=== PATIENT | female | born 1970 | race Caucasian/White ===

== ENCOUNTER 2018-09-04 22:17 | Emergency (ER) | payer OTHER ==
[2018-09-04] MEDS ORDERED: PROPARACAINE 0.5% OPHTH DROPS 15 ML BTL RIGHT EYE STA (22:54)
[2018-09-05] MEDS ORDERED: IBUPROFEN 600 MG STARTER PACK 4 TAB BTL PO STA (00:05)
[2018-09-05] MEDS ORDERED: TOBRAMYCIN 0.3% OPHTH OINT 3.5 GM TUBE RIGHT EYE STA (00:05)
--- NOTE | 2018-09-05 00:08 | ED ---
ENT HPI - General Chief complaint: ENT Stated complaint: Rt eye lac Time Seen by Provider: 09/04/18 22:47 Source: patient Mode of arrival: ambulatory Limitations: no limitations - History of Present Illness Initial comments: 47-year-old female patient presents to the emergency department today for evaluation of right eye pain and eyelid swelling. Patient states that symptoms have been present for the last 2 days. States she is having purulent drainage from the eye. Patient states that she does have light sensitivity and is unable to open the eye without significant discomfort. States when the eye is open she does have blurred vision. She denies any fevers or chills with this. Denies any headache. Patient also has a chronic wound over the right eye states his been present for the last year. Denies any current purulent drainage from the area. Patient denies any recent rash, shortness breath, chest pain, abdominal pain, nausea, vomiting, diarrhea, constipation, back pain, numbness, tingling, dizziness, weakness, hematuria, dysuria, urinary urgency, urinary frequency, or any other complaints. - Related Data Home Medications Medication Instructions Recorded Confirmed Ibuprofen [Motrin] 600 mg PO Q6H PRN 09/04/18 09/04/18 Previous Rx's Medication Instructions Recorded Ibuprofen [Motrin] 600 mg PO Q8HR PRN #30 tab 09/05/18 Allergies Allergy/AdvReac Type Severity Reaction Status Date / Time No Known Allergies Allergy Verified 09/04/18 22:37 Review of Systems ROS Statement: Those systems with pertinent positive or pertinent negative responses have been documented in the HPI. ROS Other: All systems not noted in ROS Statement are negative. Past Medical History Past Medical History: No Reported History History of Any Multi-Drug Resistant Organisms: None Reported Past Surgical History: No Surgical Hx Reported Past Psychological History: No Psychological Hx Reported Smoking Status: Never smoker Past Alcohol Use History: None Reported Past Drug Use History: None Reported General Exam Limitations: no limitations General appearance: alert, in no apparent distress, other (This is a well-developed, well-nourished adult female patient in no acute distress. Vital signs upon presentation are temperature 97.6F, pulse 88, respirations 16, blood pressure 153/90, pulse ox 98% on room air.) Eye exam: Present: PERRL, EOMI, other (Patient has right upper lid edema, erythema. There is conjunctival injection and evidence of purulent drainage from the right eye. I did perform fluorescein stain with Wood's lamp examination which does reveal a large corneal abrasion centrally located. Patient has no evidence of hyphema or globe rupture. There is a wound noted to the right superior orbital region there is no evidence of drainage or surrounding erythema.). Absent: normal appearance, scleral icterus, conjunctival injection, nystagmus, periorbital swelling ENT exam: Present: normal exam, normal oropharynx, mucous membranes moist Respiratory exam: Present: normal lung sounds bilaterally. Absent: respiratory distress, wheezes, rales, rhonchi, stridor Cardiovascular Exam: Present: regular rate, normal rhythm, normal heart sounds. Absent: systolic murmur, diastolic murmur, rubs, gallop, clicks GI/Abdominal exam: Present: soft, normal bowel sounds. Absent: distended, tenderness, guarding, rebound, rigid Neurological exam: Present: alert, oriented X3, CN II-XII intact Psychiatric exam: Present: normal affect, normal mood Skin exam: Present: warm, dry, intact, normal color. Absent: rash Course Vital Signs 09/04/18 09/05/18 22:18 00:21 Temperature 97.6 F 98 F Pulse Rate 88 77 Respiratory 16 18 Rate Blood Pressure 153/90 149/79 O2 Sat by Pulse 98 97 Oximetry Medical Decision Making - Medical Decision Making 47 year-old female patient presents to the emergency department today for evaluation of right eye pain and drainage. Physical examination did reveal upper lid edema and erythema. There was purulent drainage coming from the eye. There was evidence of conjunctival injection. I did perform fluorescein stain with Wood's lamp examination which did reveal a large corneal abrasion centrally located. Patient will be treated with tobramycin ophthalmic ointment. She is instructed to apply warm compresses and to take ibuprofen as needed for pain control. She also has a chronic wound noted to the right superior orbital region that does not appear to be inflamed or infected at this time. She will be referred to ophthalmology if her symptoms aren't improved over the next 1-2 days. She is also instructed to follow-up with dermatology for further evaluation of this chronic wound that she has not had evaluated in the past. Return parameters were discussed in detail. She verbalizes understanding and agrees with this plan. Disposition Clinical Impression: Right corneal abrasion Disposition: HOME SELF-CARE Condition: Good Instructions (If sedation given, give patient instructions): Tobramycin (Into the eye), Corneal Abrasion (ED) Additional Instructions: Do warm compresses to the right eye. Use tobramycin ointment 4 times daily while awake. Follow-up with forming machine tender if her symptoms aren't improved over the next 1-2 days. Follow-up with dermatology for further evaluation of the right eye wound. Return to the emergency department immediately for any new, worsening, or concerning symptoms. Prescriptions: Ibuprofen [Motrin] 600 mg PO Q8HR PRN #30 tab PRN Reason: Pain Is patient prescribed a controlled substance at d/c from ED?: No Referrals: José Gonzáles MD [Primary Care Provider] - 1-2 days Morris Ruiz MD [STAFF PHYSICIAN] - 1-2 days Ivan Fenton MD [STAFF PHYSICIAN] - 1-2 days Time of Disposition: 00:08
[2018-09-05 00:22] VITALS: BP 149/79; PULSE 77; RESP 18; TEMP 98
== END 2018-09-05 00:22 | disposition home or self-care (01) ==
LOC: EC 22:17
DX: S05.01XA Injury of conjunctiva and corneal abrasion without foreign body, right eye, initial encounter (principal); H02.841 Edema of right upper eyelid; X58.XXXA Exposure to other specified factors, initial encounter
CPT/HCPCS: 99283

== ENCOUNTER → 2019-04-18 | Outpatient (CLI) | payer OTHER ==
[2019-04-18 17:22] LABS: African American GFR (CKD) >90 (>60 ml/min/1.73 sqM); Blood Urea Nitrogen 20 mg/dL (7-17)
--- NOTE | 2019-04-19 17:52 | CT ---
EXAMINATION TYPE: CT orbits w con DATE OF EXAM: 04/18/2019 COMPARISON: None INDICATION: Basal cell carcinoma of right eye. DLP: 312.3 mGycm, Automated exposure control for dose reduction was used. CONTRAST: 100 mL Isovue-300 CT of the chest is performed at 2 mm thick sections. Reconstructed images in the coronal plane are re viewed. Study is performed with intravenous contrast. FINDINGS: Mild mucosal thickening is within the left inferior maxillary sinus. Remaining paranasal si nuses are clear. Mastoid air cells are clear. Nasal bones are intact. Orbital floors are normal. No suspicious intraconal and extraconal abnormalit y is evident. Right eye appears symmetrical to contralateral left side. No abnormal enhancement is ev ident. IMPRESSIONS: 1. Normal CT orbits
== END | disposition home or self-care (01) ==
LOC: RADCTMAIN 16:41
PROVIDERS: ATTEND Ophthalmology
DX: C44.111 Basal cell carcinoma of skin of unspecified eyelid, including canthus (principal)
CPT/HCPCS: 82565; 84520; 70481; 36415; Q9967

== ENCOUNTER → 2020-02-18 | Outpatient (CLI) | payer OTHER ==
--- NOTE | 2020-02-18 16:22 | CT ---
EXAMINATION TYPE: CT orbits w con DATE OF EXAM: 02/18/2020 COMPARISON: 04/18/2019 HISTORY: ca dx to right orbit CT DLP: 358.7 mGycm Automated exposure control for dose reduction was used. CONTRAST: Performed with IV Contrast, patient injected with 100 mL of Isovue 300. Contrast-enhanced CT of the o rbits was performed in the axial and coronal planes. FINDINGS: There is thickening involving the anterior right globe which may reflect the site of known malignancy . Overall the appearance is unchanged relative to the prior study. Correlate clinically. The globes a re otherwise symmetric.The intra and extraconal soft tissues are within normal limits without evidenc e for mass. Optic nerves and extraocular musculature within normal limits. There is no evidence for p roptosis. Mild chronic sinusitis. IMPRESSION: There is thickening involving the anterior right globe which may reflect the site of known malignancy . Overall the appearance is unchanged relative to the prior study. Correlate clinically.
== END | disposition home or self-care (01) ==
LOC: RADCTMAIN 15:30
PROVIDERS: ATTEND Ophthalmology
DX: H05.89 Other disorders of orbit (principal)
CPT/HCPCS: 70481; Q9967

== ENCOUNTER 2021-12-17 14:01 | Emergency (ER) | payer OTHER ==
--- NOTE | 2021-12-17 15:27 | XR ---
EXAMINATION TYPE: XR chest 2V DATE OF EXAM: 12/17/2021 COMPARISON: NONE HISTORY: Pain and swelling TECHNIQUE: 2 views FINDINGS: Heart and mediastinum are normal. Lungs are clear. Diaphragm is normal. Bony thorax is inta ct. IMPRESSION: Normal chest.
[2021-12-17 15:28] LABS: Basophils # (A) 0.1 k/uL (0-0.2); Basophils % (A) 1 %; Eosinophils # (A) 0.2 k/uL (0-0.7); Eosinophils % (A) 3 %; HCT 39.8 % (34.0-46.0); HGB 13.4 gm/dL (11.4-16.0); Lymphocytes # (A) 1.3 k/uL (1.0-4.8); Lymphocytes % (A) 22 %; MCH 30.7 pg (25.0-35.0); MCHC 33.6 g/dL (31.0-37.0); MCV 91.5 fL (80.0-100.0); Mean Platelet Volume 7.5; Monocytes # (A) 0.3 k/uL (0-1.0); Monocytes % (A) 5 %; Neutrophils # (A) 4.1 k/uL (1.3-7.7); Neutrophils % (A) 68 %; Platelet Count 298 k/uL (150-450); RBC 4.35 m/uL (3.80-5.40); RDW 12.1 % (11.5-15.5)
[2021-12-17 15:38] LABS: ALT 12 U/L (4-34); AST 20 U/L (14-36); African American GFR (CKD) >90 (>60 ml/min/1.73 sqM); Albumin 4.4 g/dL (3.5-5.0); Alkaline Phosphatase 60 U/L (38-126); Anion Gap 8 mmol/L; Blood Urea Nitrogen 13 mg/dL (7-17); Calcium 9.1 mg/dL (8.4-10.2); Carbon Dioxide 24 mmol/L (22-30); Chloride 106 mmol/L (98-107); Glucose 94 mg/dL (74-99); Non-African American GFR(CKD) >90 (>60 ml/min/1.73 sqM); Potassium 4.1 mmol/L (3.5-5.1); Sodium 138 mmol/L (137-145); Total Bilirubin 0.5 mg/dL (0.2-1.3); Total Protein 7.7 g/dL (6.3-8.2)
--- NOTE | 2021-12-17 15:39 | ED ---
General Adult HPI - General Chief complaint: Extremity Problem,Nontraumatic Stated complaint: Pain in feet/Edema Time Seen by Provider: 12/17/21 14:33 Source: patient, RN notes reviewed Mode of arrival: ambulatory Limitations: no limitations - History of Present Illness Initial comments: 51-year-old female presents to the emergency room for a chief complaint of swelling in feet. Patient states she has had bilateral foot swelling for a year now. States she tried compression socks that she got on [employer] which haven't helped. States sometimes they hurt. Today it is hurting which brought her in. Patient denies any chest pain or shortness of breath.Patient has no other complaints at this time including shortness of breath, chest pain, abdominal pain, nausea or vomiting, headache, or visual changes. - Related Data Home Medications Medication Instructions Recorded Confirmed Ibuprofen [Motrin] 600 mg PO Q6H PRN 09/04/18 09/04/18 Previous Rx's Medication Instructions Recorded Ibuprofen [Motrin] 600 mg PO Q8HR PRN #30 tab 09/05/18 Allergies Allergy/AdvReac Type Severity Reaction Status Date / Time No Known Allergies Allergy Verified 12/17/21 14:11 Review of Systems ROS Statement: Those systems with pertinent positive or pertinent negative responses have been documented in the HPI. ROS Other: All systems not noted in ROS Statement are negative. Past Medical History Past Medical History: No Reported History History of Any Multi-Drug Resistant Organisms: None Reported Past Surgical History: No Surgical Hx Reported Additional Past Surgical History / Comment(s): eye surgery Past Psychological History: No Psychological Hx Reported Smoking Status: Never smoker Past Alcohol Use History: None Reported Past Drug Use History: None Reported General Exam Limitations: no limitations General appearance: alert, in no apparent distress Head exam: Present: atraumatic Eye exam: Present: normal appearance, PERRL, EOMI. Absent: scleral icterus, conjunctival injection ENT exam: Present: normal exam, mucous membranes moist Neck exam: Present: normal inspection, full ROM. Absent: tenderness Respiratory exam: Present: normal lung sounds bilaterally. Absent: respiratory distress, wheezes Cardiovascular Exam: Present: regular rate, normal rhythm, normal heart sounds Extremities exam: Present: full ROM (Full range of motion bilateral lower extremities.), normal capillary refill (DP pulse 2+, capillary refill less than 2 seconds.), pedal edema (1+ pitting edema in bilateral feet. Does not extend up lower extremities.), other (Sensation intact bilateral lower extremities. No erythema. No evidence of infection.) Course Vital Signs 12/17/21 14:07 Pulse Rate 100 Respiratory 16 Rate Blood Pressure 161/106 O2 Sat by Pulse 98 Oximetry EKG Findings - EKG Comments: EKG Findings:: Normal sinus rhythm, ventricular rate 74, NC interval 134, QTC 390 Medical Decision Making - Medical Decision Making Vitals are stable. Patient initially hypertensive however did improve throughout her stay. EKG ischemic. CBC CMP unremarkable. BNP is within normal limits at 94. Troponin is negative. Chest x-ray does not show any abnorma lities. At this time patient's edema is likely dependency related. Patient can be discharged home to follow up with primary care. I did recommend she purchase compression socks from a medical supply store and continue to elevate her feet when sitting. She will return here for any worsening symptoms. - Lab Data Result diagrams: 12/17/21 15:15 12/17/21 15:17 Lab Results 12/17/21 12/17/21 12/17/21 Range/Units 15:15 15:15 15:15 WBC 6.0 (3.8-10.6) k/uL RBC 4.35 (3.80-5.40) m/uL Hgb 13.4 (11.4-16.0) gm/dL Hct 39.8 (34.0-46.0) % MCV 91.5 (80.0-100.0) fL MCH 30.7 (25.0-35.0) pg MCHC 33.6 (31.0-37.0) g/dL RDW 12.1 (11.5-15.5) % Plt Count 298 (150-450) k/uL MPV 7.5 Neutrophils % 68 % Lymphocytes % 22 % Monocytes % 5 % Eosinophils % 3 % Basophils % 1 % Neutrophils # 4.1 (1.3-7.7) k/uL Lymphocytes # 1.3 (1.0-4.8) k/uL Monocytes # 0.3 (0-1.0) k/uL Eosinophils # 0.2 (0-0.7) k/uL Basophils # 0.1 (0-0.2) k/uL Sodium (137-145) mmol/L Potassium (3.5-5.1) mmol/L Chloride (98-107) mmol/L Carbon Dioxide (22-30) mmol/L Anion Gap mmol/L BUN (7-17) mg/dL Creatinine (0.52-1.04) mg/dL Est GFR (CKD-EPI)AfAm (>60 ml/min/1.73 sqM) Est GFR (CKD-EPI)NonAf (>60 ml/min/1.73 sqM) Glucose (74-99) mg/dL Calcium (8.4-10.2) mg/dL Total Bilirubin (0.2-1.3) mg/dL AST (14-36) U/L ALT (4-34) U/L Alkaline Phosphatase (38-126) U/L Troponin I <0.012 (0.000-0.034) ng/mL NT-Pro-B Natriuret Pep 94 pg/mL Total Protein (6.3-8.2) g/dL Albumin (3.5-5.0) g/dL 12/17/21 Range/Units 15:17 WBC (3.8-10.6) k/uL RBC (3.80-5.40) m/uL Hgb (11.4-16.0) gm/dL Hct (34.0-46.0) % MCV (80.0-100.0) fL MCH (25.0-35.0) pg MCHC (31.0-37.0) g/dL RDW (11.5-15.5) % Plt Count (150-450) k/uL MPV Neutrophils % % Lymphocytes % % Monocytes % % Eosinophils % % Basophils % % Neutrophils # (1.3-7.7) k/uL Lymphocytes # (1.0-4.8) k/uL Monocytes # (0-1.0) k/uL Eosinophils # (0-0.7) k/uL Basophils # (0-0.2) k/uL Sodium 138 (137-145) mmol/L Potassium 4.1 (3.5-5.1) mmol/L Chloride 106 (98-107) mmol/L Carbon Dioxide 24 (22-30) mmol/L Anion Gap 8 mmol/L BUN 13 (7-17) mg/dL Creatinine 0.58 (0.52-1.04) mg/dL Est GFR (CKD-EPI)AfAm >90 (>60 ml/min/1.73 sqM) Est GFR (CKD-EPI)NonAf >90 (>60 ml/min/1.73 sqM) Glucose 94 (74-99) mg/dL Calcium 9.1 (8.4-10.2) mg/dL Total Bilirubin 0.5 (0.2-1.3) mg/dL AST 20 (14-36) U/L ALT 12 (4-34) U/L Alkaline Phosphatase 60 (38-126) U/L Troponin I (0.000-0.034) ng/mL NT-Pro-B Natriuret Pep pg/mL Total Protein 7.7 (6.3-8.2) g/dL Albumin 4.4 (3.5-5.0) g/dL Disposition Clinical Impression: Edema of both feet Disposition: HOME SELF-CARE Condition: Good Instructions (If sedation given, give patient instructions): Leg Edema (ED) Additional Instructions: Please purchase compression stockings from a medical supply store. Try to keep your feet elevated when sitting. Return to the emergency room for any worsening symptoms. Otherwise follow-up with primary care. Is patient prescribed a controlled substance at d/c from ED?: No Referrals: Ania Marshall MD [REFERRING] - 1-2 days Time of Disposition: 16:19
[2021-12-17 17:07] VITALS: BP 140/77; PULSE 82; RESP 18; TEMP 98.2
== END 2021-12-17 17:06 | disposition home or self-care (01) ==
LOC: EC 14:01
DX: R60.0 Localized edema (principal)
CPT/HCPCS: 36415; 71046; 80053; 83880; 84484; 85025; 93005; 99284

== ENCOUNTER 2024-01-20 18:32 | Emergency (ER) | payer MEDICARE, OTHER ==
[2024-01-20] MEDS: MORPHINE SULFATE 2 MG/ML SYRINGE IVP ONE (21:36)
[2024-01-20 21:37] LABS: Basophils % (A) 1 %; Eosinophils # (A) 0.1 k/uL (0-0.7); Eosinophils % (A) 2 %; HCT 41.1 % (34.0-46.0); HGB 13.9 gm/dL (11.4-16.0); Lymphocytes # (A) 1.2 k/uL (1.0-4.8); Lymphocytes % (A) 24 %; MCH 30.3 pg (25.0-35.0); MCHC 33.7 g/dL (31.0-37.0); MCV 89.9 fL (80.0-100.0); Mean Platelet Volume 7.8; Monocytes # (A) 0.4 k/uL (0-1.0); Monocytes % (A) 9 %; Neutrophils # (A) 3.1 k/uL (1.3-7.7); Neutrophils % (A) 63 %; Platelet Count 265 k/uL (150-450); RBC 4.58 m/uL (3.80-5.40); RDW 12.5 % (11.5-15.5); WBC 4.8 k/uL (3.8-10.6)
[2024-01-20 21:50] LABS: ALT 15 U/L (4-34); AST 27 U/L (14-36); African American GFR (CKD) >90 (>60 ml/min/1.73 sqM); Albumin 4.4 g/dL (3.5-5.0); Alkaline Phosphatase 55 U/L (38-126); Anion Gap 8 mmol/L; Blood Urea Nitrogen 14 mg/dL (7-17); Calcium 9.1 mg/dL (8.4-10.2); Carbon Dioxide 23 mmol/L (22-30); Chloride 108 mmol/L (98-107); Glucose 83 mg/dL (74-99); Non-African American GFR(CKD) >90 (>60 ml/min/1.73 sqM); Potassium 4.2 mmol/L (3.5-5.1); Sodium 139 mmol/L (137-145); Total Bilirubin 0.8 mg/dL (0.2-1.3); Total Protein 7.9 g/dL (6.3-8.2)
--- NOTE | 2024-01-20 21:55 | XR ---
EXAMINATION TYPE: XR chest 2V DATE OF EXAM: 01/20/2024 9:30 PM CLINICAL INDICATION:Female, 53 years old with history of Cough/pain; [facility] COMPARISON: Chest radiographs from 12 12/17/2021 TECHNIQUE: XR chest 2V Frontal and lateral views of the chest. FINDINGS: EKG wires overlie the chest. Lungs/Pleura: There is no evidence of pleural effusion, focal consolidation, or pneumothorax. Pulmonary vascularity: Unremarkable. Heart/mediastinum: Cardiomediastinal silhouette is unremarkable. Musculoskeletal: No acute osseous pathology. Other findings: None Lines/Tubes: IMPRESSION: No acute cardiopulmonary disease/process.
[2024-01-20 21:58] LABS: NT-Pro-B-Type Natriuretic Pept 181 pg/mL
--- NOTE | 2024-01-20 22:12 | US ---
EXAMINATION TYPE: US venous doppler duplex LE LT DATE OF EXAM: 01/20/2024 10:02 PM COMPARISON: NONE CLINICAL INDICATION: Female, 53 years old with history of leg pain and swelling; SIDE PERFORMED: Left TECHNIQUE: The lower extremity deep venous system is examined utilizing real time linear array sonog michelle with graded compression, doppler sonography and color-flow sonography. VESSELS IMAGED: Common Femoral Vein Deep Femoral Vein Greater Saphenous Vein * Femoral Vein Popliteal Vein Small Saphenous Vein * Proximal Calf Veins (* superficial vessels) Right Leg: Left Leg: Negative for DVT IMPRESSION: Grayscale, color doppler, spectral doppler imaging performed of the deep veins of the lo wer extremities. There is normal flow, compressibility, vascular waveforms. Left lower extremity negative for DVT.
[2024-01-20 22:29] VITALS: PULSE 84
--- NOTE | 2024-01-20 23:05 | ED ---
Extremity Problem HPI - General Chief complaint: Extremity Problem,Nontraumatic Stated complaint: Both Feet Swelling Time Seen by Provider: 01/20/24 18:50 Source: patient Mode of arrival: ambulatory Limitations: no limitations - History of Present Illness Initial comments: 53-year-old female presents the emergency department reporting to left leg pain. She reports that she feels like her leg is so swollen that she cannot bend her knee or ankle. Symptoms have been going on for years. She has been seen previously for this complaint. Denies following up with her primary care doctor for treatment or further diagnosis of the condition. She does have swelling in the bilateral lower extremities but the left is worse. Today she has had d ifficulty ambulating and this is what brought her to the emergency department. She has not taken anything for her symptoms. Patient is not on a diuretic. She does admit to some associated shortness of breath. No history of DVT or PE. No history of congestive heart failure. Denies fevers. No other alleviating, precipitating or modifying factors - Related Data Home Medications Medication Instructions Recorded Confirmed Ibuprofen [Motrin] 600 mg PO Q6H PRN 09/04/18 09/04/18 Previous Rx's Medication Instructions Recorded Ibuprofen [Motrin] 600 mg PO Q8HR PRN #30 tab 09/05/18 HYDROcodone/APAP 5-325MG [[place] 1 tab PO Q6HR PRN 3 Days #12 tab 01/20/24 5-325] Allergies Allergy/AdvReac Type Severity Reaction Status Date / Time No Known Allergies Allergy Verified 01/20/24 18:47 Review of Systems ROS Statement: Those systems with pertinent positive or pertinent negative responses have been documented in the HPI. ROS Other: All systems not noted in ROS Statement are negative. Past Medical History Past Medical History: Cancer History of Any Multi-Drug Resistant Organisms: None Reported Past Surgical History: No Surgical Hx Reported Additional Past Surgical History / Comment(s): eye surgery Past Psychological History: No Psychological Hx Reported Smoking Status: Never smoker Past Alcohol Use History: None Reported Past Drug Use History: None Reported General Exam Limitations: no limitations General appearance: alert, in no apparent distress Head exam: Present: atraumatic, normocephalic, normal inspection Eye exam: Present: normal appearance, PERRL, EOMI. Absent: scleral icterus, conjunctival injection, periorbital swelling ENT exam: Present: normal exam, mucous membranes moist Neck exam: Present: normal inspection. Absent: tenderness, meningismus, lymphadenopathy Respiratory exam: Present: normal lung sounds bilaterally. Absent: respiratory distress, wheezes, rales, rhonchi, stridor Cardiovascular Exam: Present: regular rate, normal rhythm, normal heart sounds. Absent: systolic murmur, diastolic murmur, rubs, gallop, clicks GI/Abdominal exam: Present: soft, normal bowel sounds. Absent: distended, tenderness, guarding, rebound, rigid Extremities exam: Present: normal inspection, full ROM, normal capillary refill, pedal edema (Bilateral with the left being worse than the right). Absent: t enderness, joint swelling, calf tenderness Back exam: Present: normal inspection Neurological exam: Present: alert, oriented X3, CN II-XII intact Psychiatric exam: Present: normal affect, normal mood Skin exam: Present: warm, dry, intact, normal color. Absent: rash Course Vital Signs 01/20/24 01/20/24 01/20/24 18:45 19:44 21:41 Temperature 98.9 F Pulse Rate 97 93 79 Respiratory 18 18 18 Rate Blood Pressure 157/91 147/107 161/97 O2 Sat by Pulse 97 99 97 Oximetry 01/20/24 01/20/24 22:28 23:17 Temperature 98.8 F Pulse Rate 84 84 Respiratory 17 19 Rate Blood Pressure 139/81 139/91 O2 Sat by Pulse 98 98 Oximetry Medical Decision Making - Medical Decision Making Was pt. sent in by a medical professional or institution (, PA, REHABILITATION TECH, urgent care, hospital, or senior living...) When possible be specific @ -No Did you speak to anyone other than the patient for history (EMS, parent, family, police, friend...)? What history was obtained from this source @ -No Did you review nursing and triage notes (agree or disagree)? Why? @ -I reviewed and agree with nursing and triage notes Were old charts reviewed (outside hosp., previous admission, EMS record, old EKG, old radiological studies, urgent care reports/EKG's, senior living records)? Report findings @ -No old charts were reviewed Differential Diagnosis (chest pain, altered mental status, abdominal pain women, abdominal pain men, vaginal bleeding, weakness, fever, dyspnea, syncope, headache, dizziness, GI bleed, back pain, seizure, CVA, palpatations, mental health, musculoskeletal)? @ -CT, congestive heart failure, peripheral edema, arterial occlusion EKG interpreted by me (3pts min.). @ -Yes and demonstrates sinus rhythm with a rate of 88. [place] interval 132. QRS 95. QTc of 404. No acute ST segment elevations or depressions X-rays interpreted by me (1pt min.). @ -yes and demonstrates no pulmonary vascular congestion CT interpreted by me (1pt min.). @ -None done U/S interpreted by me (1pt. min.). @ -yes and demonstrates no DVT What testing was considered but not performed or refused? (CT, X-rays, U/S, labs)? Why? @ -None What meds were considered but not given or refused? Why? @ -None Did you discuss the management of the patient with other professionals (adalberto lundy i.e. , PA, REHABILITATION TECH, lab, RT, psych nurse, social worker delinquency prevention, load dropper, teacher, business services officer, manager rn case)? Give summary @ -No Was smoking cessation discussed for >3mins.? @ -No Was critical care preformed (if so, how long)? @ -No Were there social determinants of health that impacted care today? How? (Homelessness, low income, unemployed, alcoholism, drug addiction, transportation, low edu. Level, literacy, decrease access to med. care, residential, rehab)? @ -No Was there de-escalation of care discussed even if they declined (Discuss DNR or withdrawal of care, Hospice)? DNR status @ -No What co-morbidities impacted this encounter? (DM, HTN, Smoking, COPD, CAD, Cancer, CVA, ARF, Chemo, Hep., AIDS, mental health diagnosis, sleep apnea, morbid obesity)? @ -None Was patient admitted / discharged? Hospital course, mention meds given and route, prescriptions, significant lab abnormalities, going to OR and other pertinent info. @ -Upon arrival patient seen and evaluated in room 12. Thorough history and physical exam was performed. Chest x-ray was performed. Ultrasound completed. Results are discussed with the patient. No DVT. I recommended that she wear compression stockings and elevate her feet. Patient is urged to follow-up with primary care for management of her chronic symptoms and return for any new or worsening symptoms Undiagnosed new problem with uncertain prognosis? @ -No Drug Therapy requiring intensive monitoring for toxicity (Heparin, Nitro, Insulin, Cardizem)? @ -No Were any procedures done? @ -No Diagnosis/symptom? @ -Bilateral lower extremity lymphedema Acute, or Chronic, or Acute on Chronic? @ -Chronic Uncomplicated (without systemic symptoms) or Complicated (systemic symptoms)? @ -Complicated Side effects of treatment? @ -No Exacerbation, Progression, or Severe Exacerbation? @ - Poses a threat to life or bodily function? How? (Chest pain, USA, MD, pneumonia, PE, COPD, DKA, ARF, appy, cholecystitis, CVA, Diverticulitis, Homicidal, S uicidal, threat to staff... and all critical care pts) @ -No - Lab Data Result diagrams: 01/20/24 21:19 01/20/24 21:19 Lab Results 01/20/24 01/20/24 Range/Units 21:19 21:19 WBC 4.8 (3.8-10.6) k/uL RBC 4.58 (3.80-5.40) m/uL Hgb 13.9 (11.4-16.0) gm/dL Hct 41.1 (34.0-46.0) % MCV 89.9 (80.0-100.0) fL MCH 30.3 (25.0-35.0) pg MCHC 33.7 (31.0-37.0) g/dL RDW 12.5 (11.5-15.5) % Plt Count 265 (150-450) k/uL MPV 7.8 Neutrophils % 63 % Lymphocytes % 24 % Monocytes % 9 % Eosinophils % 2 % Basophils % 1 % Neutrophils # 3.1 (1.3-7.7) k/uL Lymphocytes # 1.2 (1.0-4.8) k/uL Monocytes # 0.4 (0-1.0) k/uL Eosinophils # 0.1 (0-0.7) k/uL Basophils # 0.0 (0-0.2) k/uL Sodium 139 (137-145) mmol/L Potassium 4.2 (3.5-5.1) mmol/L Chloride 108 H (98-107) mmol/L Carbon Dioxide 23 (22-30) mmol/L Anion Gap 8 mmol/L BUN 14 (7-17) mg/dL Creatinine 0.52 (0.52-1.04) mg/dL Est GFR (CKD-EPI)AfAm >90 (>60 ml/min/1.73 sqM) Est GFR (CKD-EPI)NonAf >90 (>60 ml/min/1.73 sqM) Glucose 83 (74-99) mg/dL Calcium 9.1 (8.4-10.2) mg/dL Total Bilirubin 0.8 (0.2-1.3) mg/dL AST 27 (14-36) U/L ALT 15 (4-34) U/L Alkaline Phosphatase 55 (38-126) U/L NT-Pro-B Natriuret Pep 181 pg/mL Total Protein 7.9 (6.3-8.2) g/dL Albumin 4.4 (3.5-5.0) g/dL Disposition Clinical Impression: Leg pain, Achilles tendonitis Disposition: HOME SELF-CARE Condition: Stable Instructions (If sedation given, give patient instructions): Achilles Tendinitis (ED) Additional Instructions: Please alternate taking the Motrin with the pain medication that I have prescribed. Use the Omar bandage for compression. Follow-up with the orthopedic office and return for any new or worsening symptoms Prescriptions: HYDROcodone/APAP 5-325MG [[place] 5-325] 1 tab PO Q6HR PRN 3 Days #12 tab PRN Reason: Pain Is patient prescribed a controlled substance at d/c from ED?: Yes When asked, does pt state using other controlled substances?: No If prescribed controlled substance>3 days was MAPS reviewed?: Prescribed <3 Days If opioid is for acute pain is fill amount 7 days or less?: Yes Referrals: None,Stated [Primary Care Provider] - 1-2 days Julien Alexander DO [Doctor of Osteopathic Medicine] - 1-2 days Time of Disposition: 23:06
[2024-01-20 23:18] VITALS: BP 139/91; RESP 19; TEMP 98.8
== END 2024-01-20 23:18 | disposition home or self-care (01) ==
LOC: EC 18:32
DX: M76.62 Achilles tendinitis, left leg (principal); M76.61 Achilles tendinitis, right leg
CPT/HCPCS: 36415; 93005; 83880; 80053; 85025; 71046; 93971; 99284; 96374; J2270